=== PATIENT | female | born 1965 | race Caucasian/White ===

== ENCOUNTER → 2018-01-29 | Outpatient (CLI) | payer OTHER ==
--- NOTE | 2018-01-30 08:02 | MM ---
Reason for exam: additional evaluation requested from prior study. Last mammogram was performed 3 years ago. History: Patient is postmenopausal. Family history of breast cancer in maternal aunt at age 50. Benign US breast aspiration single RT of the right breast, January 18, 2015. Physical Findings: Nurse did not find any significant physical abnormalities on exam. MG Diagnostic Mammo w CAD HOLLIE Bilateral CC and MLO view(s) were taken. Prior study comparison: January 18, 2015, right breast MG diagnostic mammo RT wo CAD. January 01, 2015, bilateral MG diagnostic mammo w CAD HOLLIE. There are scattered fibroglandular densities. Previous mammotome biopsy in the right breast. Pacemaker over left chest. These results were verbally communicated with the patient and result sheet given to the patient on 01/29/18. ASSESSMENT: Benign, BI-RAD 2 RECOMMENDATION: Routine screening mammogram of both breasts in 1 year.
--- NOTE | 2018-01-30 08:04 | USB ---
Reason for exam: additional evaluation requested from prior study. History: Patient is postmenopausal. Family history of breast cancer in maternal aunt at age 50. Benign US breast aspiration single RT of the right breast, January 18, 2015. US Breast RT Right complete breast ultrasound includes all four quadrants, the retroareolar region and axilla. Finding demonstrates no cystic or solid lesion seen. These results were verbally communicated with the patient and result sheet given to the patient on 01/29/18. ASSESSMENT: Negative, BI-RAD 1 RECOMMENDATION: Routine screening mammogram of both breasts in 1 year.
== END | disposition home or self-care (01) ==
LOC: RADUSWWP 14:47
PROVIDERS: ATTEND Family Medicine
DX: N63.11 Unspecified lump in the right breast, upper outer quadrant (principal)
CPT/HCPCS: 77066

== ENCOUNTER → 2018-04-09 | Outpatient (CLI) | payer OTHER ==
--- NOTE | 2018-04-09 15:28 | CT ---
EXAMINATION TYPE: CT abdomen wo con DATE OF EXAM: 04/09/2018 HISTORY: Ventral hernia CT DLP: 414 mGycm. Automated Exposure Control for Dose Reduction was Utilized. TECHNIQUE: CT scan of the abdomen is performed with oral but without IV contrast. COMPARISON: NONE FINDINGS: Within the limitations of a non-contrast study, the following observations are made. LUNG BASES: There is partial visualization of right-sided pacemaker wire. LIVER/GB: Cholecystectomy clips are noted. PANCREAS: No significant abnormality is seen. SPLEEN: No significant abnormality is seen. ADRENALS: No significant abnormality is seen. KIDNEYS: No significant abnormality is seen. BOWEL: The oral contrast only reaches distal jejunal level in the left abdomen making evaluation of d istal bowel suboptimal. Occasional diverticula are seen scattered throughout visualized colon. No CT evidence for acute diverticulitis. Sutures from gastric bypass surgery are noted. No suspicious small or large bowel dilatation is seen. Patient has very little intra-abdominal fat making evaluation sub optimal. LYMPH NODES: No greater than 1cm abdominal lymph nodes are appreciated. OSSEOUS STRUCTURES: Mild to moderate disc space narrowing with vacuum disc phenomenon L3-L4 level is present. OTHER: Tiny fat-containing umbilical hernia is present. No additional ventral wall hernia noted. Scar at the left rectus muscle axial image 36 is present without hernia defect. IMPRESSION: Tiny fat-containing umbilical hernia. No additional suspicious ventral wall hernia identi fied.
== END | disposition home or self-care (01) ==
LOC: RADCTMAIN 13:44
PROVIDERS: ATTEND Family Medicine
DX: K43.9 Ventral hernia without obstruction or gangrene (principal)
CPT/HCPCS: 74150

== ENCOUNTER 2018-05-10 08:49 | Day surgery (SDC) | payer OTHER ==
[2018-05-08 10:13] VITALS: BMI 30.7
--- NOTE | 2018-05-10 07:33 | P.GSHP ---
History of Present Illness H&P Date: 05/10/18 CHIEF COMPLAINT: Colon screen HISTORY OF PRESENT ILLNESS: The patient is a 53-year-old female who presents for colon screen. Lower endoscopy was offered for further evaluation and management. PAST MEDICAL HISTORY: Please see list. PAST SURGICAL HISTORY: Please see list. MEDICATIONS: Please see list. ALLERGIES: Please see list. SOCIAL HISTORY: No illicit drug use FAMILY HISTORY: No reports of Crohn disease or ulcerative colitis. REVIEW OF ORGAN SYSTEMS: CONSTITUTIONAL: No reports of fevers or chills. PHYSICAL EXAM: VITAL SIGNS: Stable GENERAL: Well-developed pleasant in no acute distress. HEENT: No scleral icterus. Extraocular movements grossly intact. Moist buccal mucosa. NECK: Supple without lymphadenopathy. CHEST: Unlabored respirations. Equal bilateral excursions. CARDIOVASCULAR: Regular rate and rhythm. Distal 2+ pulses. ABDOMEN: Soft, nontender, nondistended. MUSCULOSKELETAL: No clubbing, cyanosis, or edema. ASSESSMENT: 1. Colon screen. PLAN: 1. Recommend proceeding with a lower endoscopy Past Medical History Past Medical History: GERD/Reflux, Syncope, Thyroid Disorder Additional Past Medical History / Comment(s): hypothyroid, goiter, Hashimotos, loren-tachy cardia, arthritis, hemorrhoids, History of Any Multi-Drug Resistant Organisms: None Reported Past Surgical History: Bariatric Surgery, Cholecystectomy, Orthopedic Surgery, Pacemaker, Tubal Ligation Additional Past Surgical History / Comment(s): bilat knee arthroscopy, alison-en- y 12-29-13, colonoscopies Past Anesthesia/Blood Transfusion Reactions: Motion Sickness Type of Cardiac Device: Permanent Pacemaker Device Placement Date:: 04-25-10 Smoking Status: Former smoker - Past Family History Mother Family Medical History: Cancer, Hyperlipidemia, Hypertension Additional Family Medical History / Comment(s): lung Father Family Medical History: Rheumatoid Arthritis (RA) Additional Family Medical History / Comment(s): sepsis Medications and Allergies Home Medications Medication Instructions Recorded Confirmed Type Ergocalciferol (Vitamin D2) 50,000 unit PO QMONTH 04/09/14 05/08/18 History [Drisdol] Multivitamins, Thera [Multivitamin] 1 each PO DAILY 04/09/14 05/08/18 History Atenolol [Tenormin] 50 mg PO DAILY 05/08/18 05/08/18 History Calcium Citrate/Vitamin D3 1 each PO DAILY 05/08/18 05/08/18 History [Calcitrate + Vit D Caplet] Levothyroxine Sodium 112 mcg PO DAILY 05/08/18 05/08/18 History QUEtiapine [SEROquel] 25 mg PO HS 05/08/18 05/08/18 History lamoTRIgine [LaMICtal] 100 mg PO DAILY 05/08/18 05/08/18 History Allergies Allergy/AdvReac Type Severity Reaction Status Date / Time amoxicillin [Amoxicillin] Allergy Rash/Hives Verified 05/08/18 10:05 hydrocodone bitartrate AdvReac Nausea & Verified 05/08/18 10:05 [From Vicodin] Vomiting
[~2018-05-10 08:49] MED LIST: LACTATED RINGERS 1,000 ML IV SCH
[2018-05-10 09:15] VITALS: RESP 16; TEMP 98
[2018-05-10] MEDS ORDERED: LIDOCAINE 1% 20 ML VIAL (10MG/ML) FOR IV START INTRADERMA ONE (09:22)
[2018-05-10] MEDS ORDERED: PROPOFOL 10 MG/ML 20 ML VIAL IV ONE (09:29)
[2018-05-10] MEDS ORDERED: LIDOCAINE 1% INJ 10MG/ML (20 ML MDV) ONE (09:29)
--- NOTE | 2018-05-10 10:08 | P.PCN ---
Date of Procedure: 05/10/18 Description of Procedure: PREOPERATIVE DIAGNOSIS: Personal history of colon polyps Colonoscopy screening. POSTOPERATIVE DIAGNOSIS: Personal history of colon polyps Colonoscopy screening. Diverticulosis, scattered with mild diverticulitis OPERATION: Colonoscopy to the ileocecal valve and appendiceal orifice. SURGEON: Jennifer Burks MD. ANESTHESIA: MAC. INDICATIONS: The patient is a 53-year-old female who presents for colonoscopy screening. Last colonoscopy was 5 years ago. Benefits and risks were described and informed consent was obtained. DESCRIPTION OF PROCEDURE: The patient had undergone Gatorade, MiraLAX and Dulcolax prep. She had been brought into the operating room and laid in the left lateral decubitus position. After adequate intravenous sedation, the rectum was examined with 2% lidocaine jelly. No external hemorrhoids were encountered. The rectal tone was within normal limits. No lesions were palpated in the rectal vault. An Olympus colonoscope was advanced until the ileocecal valve and appendiceal orifice were clearly viewed. The prep was excellent with clear visualization of the mucosal folds. The scope was removed with visualization of each mucosal fold. Scattered diverticulosis was encountered with evidence of focal colitis of the sigmoid colon albeit mild. No colonic polyps were found. No evidence of focal colitis was found. Retroflexion of the scope demonstrated no internal hemorrhoids without active bleeding or inflammation. The colon was desufflated. The patient had tolerated the procedure well. Withdrawal time was over 6 minutes. FINDINGS: No internal hemorrhoids No external prolapsed hemorrhoids. No arteriovenous malformations. No adenomatous polyps. Scattered diverticulosis was encountered with evidence of focal colitis of the sigmoid colon albeit mild. RECOMMENDATIONS: Lower endoscopy in 5 years, 2023 Plan - Discharge Summary Discharge Rx Participant: Yes New Discharge Prescriptions: No Action Ergocalciferol (Vitamin D2) [Drisdol] 50,000 unit PO QMONTH Multivitamins, Thera [Multivitamin] 1 each PO DAILY lamoTRIgine [LaMICtal] 100 mg PO DAILY QUEtiapine [SEROquel] 25 mg PO HS Atenolol [Tenormin] 50 mg PO DAILY Levothyroxine Sodium 112 mcg PO DAILY Calcium Citrate/Vitamin D3 [Calcitrate + Vit D Caplet] 1 each PO DAILY Discharge Medication List Ergocalciferol (Vitamin D2) [Drisdol] 50,000 unit PO QMONTH 04/09/14 [History] Multivitamins, Thera [Multivitamin] 1 each PO DAILY 04/09/14 [History] Atenolol [Tenormin] 50 mg PO DAILY 05/08/18 [History] Calcium Citrate/Vitamin D3 [Calcitrate + Vit D Caplet] 1 each PO DAILY 05/08/18 [History] Levothyroxine Sodium 112 mcg PO DAILY 05/08/18 [History] QUEtiapine [SEROquel] 25 mg PO HS 05/08/18 [History] lamoTRIgine [LaMICtal] 100 mg PO DAILY 05/08/18 [History] Follow up Appointment(s)/Referral(s): Jennifer Burks MD [STAFF PHYSICIAN] - As Needed Patient Instructions/Handouts: Diverticulosis Diet (GEN), Diverticulosis (DC) Activity/Diet/Wound Care/Special Instructions: Repeat colonoscopy 5 years, 2023 Discharge Disposition: HOME SELF-CARE
[2018-05-10 10:35] VITALS: BP 105/72; PULSE 61
== END 2018-05-10 10:44 | disposition home or self-care (01) ==
LOC: ORWHC2ENDO 08:49
PROVIDERS: ATTEND Surgery Plastic and Reconstructive Surgery
DX: Z12.11 Encounter for screening for malignant neoplasm of colon (principal); K57.92 Diverticulitis of intestine, part unspecified, without perforation or abscess without bleeding; K57.30 Diverticulosis of large intestine without perforation or abscess without bleeding; Z86.010 Personal history of colon polyps; K21.9 Gastro-esophageal reflux disease without esophagitis; E03.9 Hypothyroidism, unspecified; E06.3 Autoimmune thyroiditis; Z98.84 Bariatric surgery status; F39 Unspecified mood [affective] disorder; Z87.891 Personal history of nicotine dependence; Z79.890 Hormone replacement therapy; Z79.899 Other long term (current) drug therapy; Z88.5 Allergy status to narcotic agent; Z88.0 Allergy status to penicillin
CPT/HCPCS: J2001; J2704; G0105

== ENCOUNTER → 2018-05-16 | Outpatient (CLI) | payer OTHER ==
[2018-05-16 12:17] LABS: HCT 37.6 % (34.0-46.0); HGB 12.1 gm/dL (11.4-16.0); MCH 29.4 pg (25.0-35.0); MCHC 32.2 g/dL (31.0-37.0); MCV 91.5 fL (80.0-100.0); Mean Platelet Volume 5.7; Platelet Count 336 k/uL (150-450); RBC 4.11 m/uL (3.80-5.40); RDW 13.5 % (11.5-15.5); WBC 4.5 k/uL (3.8-10.6)
[2018-05-16 12:24] LABS: INR 0.9 (<1.2); Partial Thromboplastin Time 23.7 sec (22.0-30.0)
[2018-05-16 18:19] LABS: Albumin 4.2 g/dL (3.80-4.90); Albumin/Globulin Ratio 2.1 (1.60-3.17); Anion Gap 8.1 mmol/L (4.00-12.00); Calcium 8.8 mg/dL (8.7-10.3); Carbon Dioxide 25.9 mmol/L (21.6-31.8); LDL Cholesterol,Calculated 124.6 mg/dL (0.0-131.0); Magnesium 2.1 mg/dL (1.5-2.4); Phosphorus 4.1 mg/dL (2.4-5.1); Potassium 4.5 mmol/L (3.5-5.5); Total Bilirubin 0.5 mg/dL (0.3-1.2); Total Protein 6.2 g/dL (6.2-8.2); VLDL Calculation 17.4 mg/dL (5.00-40.00)
[2018-05-16 18:27] LABS: Vitamin D 25 Hydroxy 22.4 ng/mL (30.0-100.0)
[2018-05-16 18:44] LABS: Folate, Serum 22.8 ng/mL
[2018-05-16 21:00] LABS: Hemoglobin A1C 5.7 % (4.0-6.0)
[2018-05-17 13:45] LABS: Zinc, Serum 57 ug/dL (60-130)
== END | disposition home or self-care (01) ==
LOC: LABWHC1 11:27
PROVIDERS: ATTEND Surgery Plastic and Reconstructive Surgery
DX: E21.1 Secondary hyperparathyroidism, not elsewhere classified (principal); E89.1 Postprocedural hypoinsulinemia; D50.8 Other iron deficiency anemias; K90.89 Other intestinal malabsorption; E44.0 Moderate protein-calorie malnutrition; E55.9 Vitamin D deficiency, unspecified; K74.1 Hepatic sclerosis; N19 Unspecified kidney failure
CPT/HCPCS: 36415; 80053; 80061; 82306; 82525; 82607; 82746; 83036; 83735; 83970; 84100; 84134; 84255; 84425; 84443; 84590; 84630; 85027; 85610; 85730

== ENCOUNTER → 2018-12-24 | Outpatient (CLI) | payer OTHER ==
[2018-12-24 15:00] LABS: Basophils % (A) 1 %; Eosinophils # (A) 0.1 k/uL (0-0.7); Eosinophils % (A) 3 %; HCT 35.3 % (34.0-46.0); HGB 12.3 gm/dL (11.4-16.0); Lymphocytes # (A) 1.5 k/uL (1.0-4.8); Lymphocytes % (A) 28 %; MCH 29.9 pg (25.0-35.0); MCHC 34.8 g/dL (31.0-37.0); MCV 85.9 fL (80.0-100.0); Mean Platelet Volume 5.4; Monocytes # (A) 0.3 k/uL (0-1.0); Monocytes % (A) 6 %; Neutrophils # (A) 3.2 k/uL (1.3-7.7); Neutrophils % (A) 61 %; Platelet Count 329 k/uL (150-450); RBC 4.11 m/uL (3.80-5.40); RDW 13.2 % (11.5-15.5); WBC 5.3 k/uL (3.8-10.6)
== END | disposition home or self-care (01) ==
LOC: LABPAT 13:37
PROVIDERS: ATTEND Surgery Plastic and Reconstructive Surgery
DX: Z01.812 Encounter for preprocedural laboratory examination (principal)
CPT/HCPCS: 36415; 85025

== ENCOUNTER 2018-12-27 11:41 | Day surgery (SDC) | payer OTHER ==
[2018-12-05 13:47] VITALS: BMI 27.8
--- NOTE | 2018-12-26 19:46 | P.GSHP ---
History of Present Illness H&P Date: 12/27/18 CHIEF COMPLAINT: Incisional hernia. HISTORY OF PRESENT ILLNESS: The patient is a 53-year-old female who presents with a history of swelling along the left upper abdomen. Findings were consistent with possible incisional hernia. Now she presents for further evaluation and management. PAST MEDICAL HISTORY: Please see list. PAST SURGICAL HISTORY: Please see list. MEDICATIONS: Please see list. ALLERGIES: Please see list. SOCIAL HISTORY: No illicit drug use FAMILY HISTORY: No reports of Crohn disease or ulcerative colitis. REVIEW OF ORGAN SYSTEMS: CONSTITUTIONAL: No reports of fevers or chills. GI: Denies any blood in stools or constipation. PHYSICAL EXAM: VITAL SIGNS: Stable GENERAL: Well-developed pleasant female in no acute distress. HEENT: No scleral icterus. Extraocular movements grossly intact. Moist buccal mucosa. NECK: Supple without lymphadenopathy. CHEST: Unlabored respirations. Equal bilateral excursions. CARDIOVASCULAR: Regular rate and rhythm. Distal 2+ pulses. ABDOMEN: Soft, nondistended. Tender along the left upper abdomen. Protuberant. MUSCULOSKELETAL: No clubbing, cyanosis, or edema. ASSESSMENT: 1. Incisional ventral hernia. 2. Morbid obesity, BMI 45.2 PLAN: 1. Recommend proceeding with robotic ventral hernia repair with mesh. 2. Benefits and risks of surgical intervention was discussed including possibility of open technique. 3. DVT prophylaxis. 4. Antibiotic prophylaxis. Past Medical History Past Medical History: GERD/Reflux, Osteoarthritis (OA), Syncope, Thyroid Disorder Additional Past Medical History / Comment(s): goiter, Hashimotos, "sick sinus syndrome", Pacemaker., hx gastritis, History of Any Multi-Drug Resistant Organisms: None Reported Past Surgical History: Bariatric Surgery, Cholecystectomy, Orthopedic Surgery, Pacemaker, Tubal Ligation Additional Past Surgical History / Comment(s): bilat knee arthroscopy, alison-en-y 12-29-13, colonoscopies, Past Anesthesia/Blood Transfusion Reactions: No Reported Reaction Type of Cardiac Device: Permanent Pacemaker Device Placement Date:: 06/25/2015-[employer] Past Psychological History: Bipolar, Depression Smoking Status: Former smoker Past Alcohol Use History: None Reported Additional Past Alcohol Use History / Comment(s): quit smoking in 1994, smoked for 15 yrs, 1 PPD Past Drug Use History: None Reported - Past Family History Mother Family Medical History: Cancer, Hyperlipidemia Additional Family Medical History / Comment(s): lung Father Family Medical History: Rheumatoid Arthritis (RA) Additional Family Medical History / Comment(s): sepsis Medications and Allergies Home Medications Medication Instructions Recorded Confirmed Type Ergocalciferol (Vitamin D2) 50,000 unit PO QMONTH 04/09/14 12/24/18 History [Drisdol] Multivitamins, Thera [Multivitamin] 1 each PO DAILY 04/09/14 12/24/18 History Atenolol [Tenormin] 50 mg PO DAILY 05/08/18 12/24/18 History Calcium Citrate/Vitamin D3 1 each PO TID 05/08/18 12/24/18 History [Calcitrate + Vit D Caplet] Levothyroxine Sodium 112 mcg PO DAILY 05/08/18 12/24/18 History QUEtiapine [SEROquel] 25 mg PO HS 05/08/18 12/24/18 History lamoTRIgine [LaMICtal] 100 mg PO DAILY 05/08/18 12/24/18 History Venlafaxine HCl [Effexor XR] 75 mg PO DAILY 12/05/18 12/24/18 History Allergies Allergy/AdvReac Type Severity Reaction Status Date / Time amoxicillin [Amoxicillin] Allergy Rash/Hives Verified 12/24/18 11:02 hydrocodone bitartrate AdvReac Nausea & Verified 12/24/18 11:02 [From Vicodin] Vomiting
[~2018-12-27 11:41] MED LIST changes: +ACETAMINOPHEN TAB 500 MG TAB PO STA; +DEXAMETHASONE SOD PHOSPHATE 10 MG/ML 1 ML VIAL IV ONE; +HEPARIN SODIUM,PORCINE 5,000 UNIT/ML 1 ML VIAL SQ ONE; +MIDAZOLAM 2 MG/2 ML VIAL IV PRN; +ONDANSETRON 4 MG/2 ML VIAL IVP ONE; +SCOPOLAMINE 1.5MG/72HR PATCH TRANSDERM ONE; +fentaNYL (PF) 50 MCG/ML 2 ML AMP IV PRN
[2018-12-27 12:05] VITALS: TEMP 97.5
[2018-12-27] MEDS ORDERED: LIDOCAINE 1% 20 ML VIAL (10MG/ML) FOR IV START INTRADERMA ONE (12:10)
[2018-12-27] MEDS ORDERED: MIDAZOLAM PF (FBP) 2 MG/2 ML VIAL IVP ONE (13:02)
--- NOTE | 2018-12-27 13:17 | P.ANPRN ---
Procedure Note - Anesthesia - Nerve Block Performed Bilateral Transversus Abdominis Single Time Out Performed: Yes Date of Procedure: 12/27/18 Procedure Start Time: 13:01 Procedure Stop Time: 13:06 Location of Patient Procedure: PreOp Indication: Acute Post-Operative Pain, Analgesia, Requested by Surgeon Sedation Type: Sedate with meaningful contact maintained Preparation: Sterile Prep Position: Supine Catheter: None Needle Types: Pajunk Needle Gauge: 21 Ultrasound used to visualize needle placement: Yes Ultrasound used to observe medication spread: Yes Injectate: Other (see comment) (0.25% ropivacaine 30cc each side) Blood Aspirated: No Pain Paresthesia on Injection Noted: No Resistance on Injection: Normal Image Stored and Saved: Yes Events: Uneventful and Well Tolerated
[2018-12-27] MEDS ORDERED: PROPOFOL 10 MG/ML 20 ML VIAL IV ONE (14:00)
[2018-12-27] MEDS ORDERED: MIDAZOLAM 2 MG/2 ML VIAL ONE (14:00)
[2018-12-27] MEDS ORDERED: LIDOCAINE 1% INJ 10MG/ML (20 ML MDV) ONE (14:00)
[2018-12-27] MEDS ORDERED: ROPIVACAINE 5 MG/ML 30 ML VIAL ONE (14:00)
[2018-12-27] MEDS ORDERED: fentaNYL (PF) 50 MCG/ML 2 ML AMP ONE (14:00)
[2018-12-27] MEDS ORDERED: GLYCOPYRROLATE 0.2 MG/ML 2 ML VIAL ONE (14:00)
[2018-12-27] MEDS ORDERED: KETOROLAC 30 MG/ML 1 ML VIAL ONE (14:00)
[2018-12-27] MEDS ORDERED: NEOSTIGMINE 1 MG/ML 10 ML VIAL ONE (14:00)
[2018-12-27] MEDS ORDERED: ePHEDrine SULFATE/0.9% NACL/PF 50 MG/5 ML SYRINGE IV ONE (14:00)
[2018-12-27] MEDS ORDERED: ROCURONIUM BROMIDE 10 MG/ML 10 ML VIAL IV ONE (14:00)
[2018-12-27] MEDS ORDERED: SUCCINYLCHOLINE CHLORIDE 100 MG/5 ML SYR IV ONE (14:00)
[2018-12-27] MEDS ORDERED: LIDOCAINE 1%-EPI 1:100,000 20 ML VIAL SQ ONE (14:34)
[2018-12-27] MEDS ORDERED: LACTATED RINGERS 1,000 ML IV ONE (15:03)
--- NOTE | 2018-12-27 15:32 | P.OP ---
Date of Procedure: 12/27/18 Description of Procedure: SURGEON: JENNIFER BURKS MD PREOPERATIVE DIAGNOSES: 1. History of multiple abdominal procedures 2. Left upper quadrant abdominal pain 3. Left upper abdominal swelling/incisional hernia 4. Bipolar disorder 5. Depressive disorder 6. Hypothyroidism 7. History of pacemaker for sick sinus syndrome 8. Gastroesophageal reflux disease 9. Status post gastric bypass POSTOPERATIVE DIAGNOSES: 1. History of multiple abdominal procedures 2. Left upper quadrant abdominal pain 3. Left upper peritoneal adhesions, greater omentum to anterior abdominal wall 4. Bipolar disorder 5. Depressive disorder 6. Hypothyroidism 7. History of pacemaker for sick sinus syndrome 8. Gastroesophageal reflux disease 9. Status post gastric bypass OPERATION: 1. Robotic-assisted da Carson Xi laparoscopic with lysis of adhesions over 45 minutes. ESTIMATED BLOOD LOSS: 5 mL. SPECIMENS REMOVED: None. COMPLICATIONS: None. OPERATIVE FINDINGS: 1. No ventral hernias identified. 2. Adhesions along the left upper quarant 3. Complete scarring of Johnson defect and jejunojejunostomy mesenteric defect 4. No small bowel obstructions INDICATIONS: The patient is a 53-year-old female who presents with left upper quadrant abdominal pain and possible left upper quadrant incisional hernia. Surgical intervention with diagnostic laparoscopy, lysis of adhesions, incisional hernia repair were described. Informed consent was obtained. Robotic assisted laparoscopic approach was described. Benefits and risks of the procedure including but not limited to bleeding, infection, injury to the biliary tree was described. Informed consent was obtained. DESCRIPTION OF PROCEDURE: Patient was brought to the operating room, placed in supine position. After general induction, the abdomen had been prepped and draped in standard sterile fashion. The robotic da Carson XI system was primed. After a timeout protocol was performed, the patient had been prepped and draped in standard sterile fashion. The robot was docked along the right lateral abdomen. Please note prior to docking of the robot; however, a 5 mm 0 degrees laparoscopic trocar entry was performed along the left upper quadrant with insufflation to 15 mmHg pressure she tolerated well. Diagnostic laparoscopy demonstrated adhesions on the left upper quadrant Next, three 8 mm robotic ports were placed along the right lateral abdominal wall. The camera 8-mm port was maintained along mid-lateral abdomen. Please note that the ports were placed at least 10 to 15 cm away from the target anatomy. Instruments including graspers and vessel sealer were interchanged by the marketing support assistant. I had sat at the console. Omental adhesions along the left upper abdominal wall were addressed using scissors with cautery. No evidence of incisional hernia was identified. The rest of the abdomen was unremarkable for small bowel pathology. The small bowel from the alison limb to distal ileum was inspected. No internal hernias were identified. Complete scarring of Johnson defect and jejunojejunostomy mesenter ic defect was confirmed. The terminal ileum and cecum was unremarkable. Lysis of adhesions over 30 minutes performed. No evidence of small bowel obstruction was found. The robot was undocked. All pneumoperitoneum instruments were evacuated from the abdominal cavity. The incisions were reapproximated using 4-0 Monocryl in an interrupted subcuticular fashion. Please note along the trocar sites, local anesthetic was placed as a field block prior to insertion of all instruments. Exofin was applied to the skin. At the end of the procedure needle, sponge, and instrument count had been verif ied correct by the surgical asst. The patient was transferred to postanesthesia care unit in stable condition. Plan - Discharge Summary Discharge Rx Participant: Yes New Discharge Prescriptions: New Acetaminophen Tab [Tylenol Tab] 500 mg PO Q6H PRN #30 tablet PRN Reason: Pain No Action Ergocalciferol (Vitamin D2) [Drisdol] 50,000 unit PO QMONTH Multivitamins, Thera [Multivitamin] 1 each PO DAILY lamoTRIgine [LaMICtal] 100 mg PO DAILY QUEtiapine [SEROquel] 25 mg PO HS Atenolol [Tenormin] 50 mg PO DAILY Levothyroxine Sodium 112 mcg PO DAILY Calcium Citrate/Vitamin D3 [Calcitrate + Vit D Caplet] 1 each PO TID Venlafaxine HCl [Effexor XR] 75 mg PO DAILY Discharge Medication List Ergocalciferol (Vitamin D2) [Drisdol] 50,000 unit PO QMONTH 04/09/14 [History] Multivitamins, Thera [Multivitamin] 1 each PO DAILY 04/09/14 [History] Atenolol [Tenormin] 50 mg PO DAILY 05/08/18 [History] Calcium Citrate/Vitamin D3 [Calcitrate + Vit D Caplet] 1 each PO TID 05/08/18 [History] Levothyroxine Sodium 112 mcg PO DAILY 05/08/18 [History] QUEtiapine [SEROquel] 25 mg PO HS 05/08/18 [History] lamoTRIgine [LaMICtal] 100 mg PO DAILY 05/08/18 [History] Venlafaxine HCl [Effexor XR] 75 mg PO DAILY 12/05/18 [History] Acetaminophen Tab [Tylenol Tab] 500 mg PO Q6H PRN #30 tablet 12/27/18 [Rx] Follow up Appointment(s)/Referral(s): Jennifer Burks MD [STAFF PHYSICIAN] - 12/31/18 Patient Instructions/Handouts: Lysis of Abdominal Adhesions (DC) Activity/Diet/Wound Care/Special Instructions: No lifting for 10 pounds for 10 days until 01/06/2019. No bath tub soaks for 10 days until 01/06/2019. May shower. Use ice for incisions. Discharge Disposition: HOME SELF-CARE
[2018-12-27 16:01] VITALS: RESP 18
[2018-12-27 16:19] VITALS: BP 110/60; PULSE 60
== END 2018-12-27 16:42 | disposition home or self-care (01) ==
LOC: OR 11:41
PROVIDERS: ATTEND Surgery Plastic and Reconstructive Surgery
DX: K66.0 Peritoneal adhesions (postprocedural) (postinfection) (principal); F31.9 Bipolar disorder, unspecified; E03.9 Hypothyroidism, unspecified; I49.5 Sick sinus syndrome; K21.9 Gastro-esophageal reflux disease without esophagitis; Z95.0 Presence of cardiac pacemaker; Z98.84 Bariatric surgery status; Z90.49 Acquired absence of other specified parts of digestive tract; Z98.51 Tubal ligation status; Z87.891 Personal history of nicotine dependence; Z80.1 Family history of malignant neoplasm of trachea, bronchus and lung; Z82.61 Family history of arthritis; Z79.890 Hormone replacement therapy; Z88.1 Allergy status to other antibiotic agents; Z79.899 Other long term (current) drug therapy; Z88.5 Allergy status to narcotic agent
CPT/HCPCS: 64488; 49329; J2250 ×2; J1644; J1100; J2710; J0690; J2405; J2001; J3010; J1885; J2795; J0330; J2704

== ENCOUNTER → 2019-03-12 | Outpatient (CLI) | payer OTHER ==
--- NOTE | 2019-03-12 23:05 | CT ---
EXAMINATION TYPE: CT abdomen pelvis w con DATE OF EXAM: 03/12/2019 HISTORY: LLQ pain CT DLP: 865.5mGycm Automated Exposure Control for Dose Reduction was Utilized. CONTRAST: CT scan of the abdomen and pelvis is performed with IV Contrast, patient injected with 100 mL of Isov ue 300. COMPARISON: CT abdomen April 09, 2018 FINDINGS: LUNG BASES: Partial visualization of right-sided pacemaker wire. LIVER/GB: Cholecystectomy clips are redemonstrated. PANCREAS: No significant abnormality is seen. SPLEEN: Stable tiny posterior calcification to the spleen axial image 21 presumed benign. ADRENALS: No significant abnormality is seen. KIDNEYS: No significant abnormality is seen. BOWEL: Oral contrast reaches level of the left colon. No suspicious small or large bowel dilatation. Surgical changes from gastric bypass redemonstrated epigastric region. No suspicious small or large b owel dilatation. Normal-appearing appendix and cecum in the right upper pelvis medially. Moderate pro minence of fecal material in the left colon is identified at level of left lower quadrant. Scattered diverticula most prominent in the sigmoid colon. No CT evidence for acute diverticulitis. UTERUS/ADNEXA: Uterus anteverted in shape projecting to the left of midline. LYMPH NODES: No greater than 1cm abdominal or pelvic lymph nodes are appreciated. OSSEOUS STRUCTURES: Mild to moderate Disc space narrowing and disc desiccation L3-L4 and L5-S1 levels . Some facet arthropathy lower lumbar spine. OTHER: Stable tiny fat-containing umbilical hernia. Small scar over left rectus muscle axial image 30 redemonstrated. IMPRESSION: Suspected moderate distal colonic fecal stasis centered mid to distal left colon extendin g into proximal sigmoid colon may be accounting for patient's symptoms. Overall nonobstructive bowel gas pattern is felt present.
== END | disposition home or self-care (01) ==
LOC: RADCTMAIN 15:42
PROVIDERS: ATTEND Surgery Plastic and Reconstructive Surgery
DX: K57.92 Diverticulitis of intestine, part unspecified, without perforation or abscess without bleeding (principal); Z88.0 Allergy status to penicillin
CPT/HCPCS: 74177; Q9967

== ENCOUNTER → 2020-01-29 | Outpatient (CLI) | payer OTHER ==
--- NOTE | 2020-01-30 14:48 | MM ---
Reason for exam: screening (asymptomatic). Last mammogram was performed 2 years ago. History: Patient is postmenopausal. Family history of breast cancer in maternal aunt at age 50. Benign US breast aspiration single RT of the right breast, January 18, 2015. Physical Findings: A clinical breast exam by your physician is recommended on an annual basis and results should be correlated with mammographic findings. MG Screening Mammo w CAD Bilateral CC and MLO view(s) were taken. Prior study comparison: January 29, 2018, bilateral MG diagnostic mammo w CAD HOLLIE. January 18, 2015, right breast MG diagnostic mammo RT wo CAD. There are scattered fibroglandular densities. Previous mammotome biopsy in the right breast. Pacemaker on left. No significant changes when compared with prior studies. ASSESSMENT: Benign, BI-RAD 2 RECOMMENDATION: Routine screening mammogram of both breasts in 1 year.
== END | disposition home or self-care (01) ==
LOC: RADMAMWWP 08:15
PROVIDERS: ATTEND Family Medicine
DX: Z12.31 Encounter for screening mammogram for malignant neoplasm of breast (principal)
CPT/HCPCS: 77067

== ENCOUNTER → 2020-05-13 | Outpatient (CLI) | payer OTHER ==
[2020-05-13 16:34] LABS: INR 1.1 (0.90-1.11); Partial Thromboplastin Time 28.2 sec (23.5-31.0); Prothrombin Time 11.9 sec (9.9-11.9)
[2020-05-13 17:02] LABS: % Iron Saturation 13.23 (12.00-45.00); African American GFR (CKD) 82.3 (60.0-200.0); Albumin 4.7 g/dL (3.80-4.90); Albumin/Globulin Ratio 2.76 (1.60-3.17); Anion Gap 8.7 mmol/L (4.00-12.00); BUN/Creat Ratio 15.56 Ratio (12.00-20.00); Calcium 9.9 mg/dL (8.7-10.3); Carbon Dioxide 27.3 mmol/L (21.6-31.8); Chol/HDL Ratio 2.71; Globulin 1.7 g/dL (1.6-3.3); LDL Cholesterol,Calculated 140.6 mg/dL (0.0-131.0); Magnesium 2.2 mg/dL (1.5-2.4); Phosphorus 3.9 mg/dL (2.4-5.1); Potassium 4.5 mmol/L (3.5-5.5); Total Bilirubin 0.7 mg/dL (0.2-1.2); Total Protein 6.4 g/dL (6.2-8.2); VLDL Calculation 11.4 mg/dL (5.00-40.00)
[2020-05-13 17:04] LABS: Ferritin 7.2 ng/mL (10.0-291.0); Folate, Serum 15.6 ng/mL
[2020-05-13 17:08] LABS: HCT 37.9 % (37.2-46.3); HGB 11.7 g/dL (12.0-15.0); MCH 27.6 pg (27.0-32.0); MCHC 30.9 g/dL (32.0-37.0); MCV 89.4 fL (80.0-97.0); Mean Platelet Volume 9.2 fL (9.5-12.2); Platelet Count 345 X 10*3/uL (140-440); RBC 4.24 X 10*6/uL (4.10-5.20); RDW 13.6 % (11.5-14.5); WBC 3.68 X 10*3/uL (4.50-10.00)
[2020-05-13 17:15] LABS: Hemoglobin A1C 5.5 % (4.0-6.0)
[2020-05-14 12:07] LABS: Zinc, Serum 63 ug/dL (60-130)
[2020-05-14 14:05] LABS: Vitamin A 51 ug/dL (38-106)
== END | disposition home or self-care (01) ==
LOC: LABWHC1 09:36
PROVIDERS: ATTEND Surgery Plastic and Reconstructive Surgery
DX: E55.9 Vitamin D deficiency, unspecified (principal); E66.01 Morbid (severe) obesity due to excess calories; E89.1 Postprocedural hypoinsulinemia; D50.9 Iron deficiency anemia, unspecified; K90.89 Other intestinal malabsorption; K74.1 Hepatic sclerosis; K50.90 Crohn's disease, unspecified, without complications; N19 Unspecified kidney failure
CPT/HCPCS: 36415; 80053; 80061; 82306; 82525; 82607; 82728; 82746; 83036; 83540; 83550; 83735; 83970; 84100; 84134; 84255; 84425; 84443; 84590; 84630; 85027; 85610; 85730

== ENCOUNTER → 2020-05-19 | Outpatient (CLI) | payer OTHER ==
[2020-05-19 15:14] VITALS: BP 154/92; PULSE 57; RESP 16; TEMP 99; BMI 32.2
--- NOTE | 2020-05-19 16:22 | P.PN ---
Subjective Progress Note Date: 05/19/20 DATE OF SERVICE: 05/19/2020 CHIEF COMPLAINT: Status post dell-en-Y gastric bypass. HISTORY OF PRESENT ILLNESS: Malgorzata Saucedo is a 55-year-old female who is status post a Dell-en-Y gastric bypass from December 29, 2013. She is 7 years out. She comes in with new problem of moderate weight gain. She has been lost to follow- up for 5 years from the bariatric center. She has gained moderate weight with change in her thyroid dose medication. She is on medications that puts her at risk for weight gain including lamictal. She comes in with left upper quadrant abdominal pain. She initially presented to the program weighing 257 pounds. Today she comes in weighing 179 pounds from 150 pounds, 6 years ago. She has gained 28 pounds in 6 years. She has achieved 64% lifetime excess weight loss. Her lifetime weight loss is 78 pounds. Her body mass index has been reduced from 47 to 32.2. PAST MEDICAL HISTORY: 1. Bradyarrhythmia. 2. Morbid obesity due to excess calories 3. Depression. 4. Hypothyroidism. 5. Osteoarthritis. 6. Vitamin D deficiency. 7. Prior history of adenoma of the colon. 8. Gastroesophageal reflux disease. 9. Hemorrhoids. 10. Frequent diarrhea. PAST SURGICAL HISTORY: 1. Tubal ligation. 2. Pacemaker placement. 3. Cholecystectomy. 4. Colonoscopy. 5. Right knee arthroscopy. 6. EGD. 7. Cardiac stress test. 8. Dell-en-Y gastric bypass. 9. Status post lysis of adhesions. MEDICATIONS: Home Medications Medication Instructions Recorded Confirmed Multivitamins, Thera [Multivitamin] 1 each PO DAILY 04/09/14 05/19/20 Calcium Citrate/Vitamin D3 1 each PO BID 05/08/18 05/19/20 [Calcitrate + Vit D Caplet] Levothyroxine Sodium 100 mcg PO DAILY 05/08/18 05/19/20 lamoTRIgine [LaMICtal] 100 mg PO DAILY 05/08/18 05/19/20 Buprenorphine HCl [Belbuca] 150 mcg BUCCAL DAILY 05/19/20 05/19/20 Cyanocobalamin (Vitamin B-12) 1,000 mcg PO QMONTHLY 05/19/20 05/19/20 [Vitamin B-12] Ergocalciferol (Vitamin D2) 50,000 units PO QMONTHLY 05/19/20 05/19/20 [Drisdol (50,000 Iu)] Nystatin 100,000 Unit/gm Oint 1 applic TOPICAL DIRECTED PRN 05/19/20 05/19/20 [Mycostatin Oint] Previous Rx's Medication Instructions Recorded Levothyroxine Sodium [Levoxyl] 125 mcg PO DAILY #30 tab 05/19/20 ALLERGIES: Allergies Allergy/AdvReac Type Severity Reaction Status Date / Time amoxicillin [Amoxicillin] Allergy Rash/Hives Verified 05/19/20 15:21 hydrocodone bitartrate AdvReac Nausea & Verified 05/19/20 15:21 [From Vicodin] Vomiting SOCIAL HISTORY: Remote tobacco use. FAMILY HISTORY: Pertinent for morbid obesity. REVIEW OF SYSTEMS: CONSTITUTIONAL: She initially presented to the program weighing 257 pounds. Today she comes in weighing 179 pounds from 150 pounds, 6 years ago. She has gained 28 pounds in 6 years. She has achieved 64% lifetime excess weight loss. Her lifetime weight loss is 78 pounds. Her body mass index has been reduced from 47 to 32.2. PSYCH: On antidepressants medication including Lexapro and Lamictal. GASTROINTESTINAL: No reports dysphagia and diarrhea or constipation. HEENT: Wears glasses. Denies any troubles with hearing. ENDOCRINE: Has hypothyroidism. No reports of diabetes. CARDIOVASCULAR: History of bradyarrhythmia. No reports of hypertension. RESPIRATORY: Lower risk for sleep apnea. No reports of pneumonia. MUSCULOSKELETAL: Osteoarthritis moderately improved with weight loss. NEURO: No reports of seizure disorder or headaches. HEMATOLOGIC: No reports of DVTs or pulmonary embolism. SKIN: Has panniculitis. No skin cancer. PHYSICAL EXAM: VITAL SIGNS: Height 5 foot 2.5 inches, 179 pounds. BMI 32.3. Vital Signs Temp 99 F 05/19/20 15:10 Pulse 57 L 05/19/20 15:10 Resp 16 05/19/20 15:10 BP 154/92 05/19/20 15:10 Pulse Ox GENERAL: Well-developed, pleasant female in no acute distress. ABDOMEN: Soft, nondistended. No incisional hernias. HEENT: No sclerae icterus. Extraocular movements are grossly intact. Moist buccal mucosa. NECK: Supple without lymphadenopathy. CHEST: Nonlabored respirations with equal bilateral excursions. CARDIOVASCULAR: Regular rate and rhythm. MUSCULOSKELETAL: No clubbing, cyanosis or edema. NEURO: No focal or lateralizing signs. Cranial nerves II to XII intact. PSYCH: Appropriate affect. Alert and oriented to person, place and time. SKIN: Well perfused, good skin turgor. LABS: Bariatric labs are reviewed. WBC is low, Hemoglobin is low, Cholesterol is elevated, PTH is elevated. TSH 2.02 ASSESSMENT: 1. History of morbid obesity secondary to excess caloric intake. 2. Body mass index reduced from 47 down to 32.3 3. Status post Dell-en-Y gastric bypass. 4. History of bipolar disorder. 5. Hypothyroidism. 6. Leukopenia 7. Hypercholesterolemia 8. Dietary surveillance and management PLAN: 1. Her WBC is low which is new. Recommend repeat CBC. 2. Recommend increase her levothyroxine for goal TSH less than 1.0 3. Dietary surveillance and management with 2 week high protein low carb diet advised. 4. Follow-up in 1 month Objective - Vital Signs Vital signs: Vital Signs Temp 99 F 05/19/20 15:10 Pulse 57 L 05/19/20 15:10 Resp 16 05/19/20 15:10 BP 154/92 05/19/20 15:10 Pulse Ox Intake & Output 05/18/20 05/19/20 05/19/20 18:59 06:59 18:59 Weight 81.193 kg
== END | disposition home or self-care (01) ==
LOC: BARWHC3 14:24
PROVIDERS: ATTEND Surgery Plastic and Reconstructive Surgery
DX: E66.01 Morbid (severe) obesity due to excess calories (principal); E03.9 Hypothyroidism, unspecified; E78.00 Pure hypercholesterolemia, unspecified; D72.819 Decreased white blood cell count, unspecified; Z86.59 Personal history of other mental and behavioral disorders; Z68.32 Body mass index [BMI] 32.0-32.9, adult; Z98.84 Bariatric surgery status; Z71.3 Dietary counseling and surveillance; Z88.0 Allergy status to penicillin; Z79.899 Other long term (current) drug therapy; Z79.890 Hormone replacement therapy
CPT/HCPCS: 99211

== ENCOUNTER → 2020-06-14 | Outpatient (CLI) | payer OTHER ==
[2020-06-14 14:24] LABS: Basophils % (A) 1 %; Eosinophils # (A) 0.2 k/uL (0-0.7); Eosinophils % (A) 4 %; HCT 36.5 % (34.0-46.0); HGB 11.5 gm/dL (11.4-16.0); Lymphocytes # (A) 1.3 k/uL (1.0-4.8); Lymphocytes % (A) 33 %; MCH 26.9 pg (25.0-35.0); MCHC 31.6 g/dL (31.0-37.0); Mean Platelet Volume 6.8; Monocytes # (A) 0.3 k/uL (0-1.0); Monocytes % (A) 8 %; Neutrophils % (A) 51 %; Platelet Count 340 k/uL (150-450); RDW 13.7 % (11.5-15.5); WBC 3.9 k/uL (3.8-10.6)
== END | disposition home or self-care (01) ==
LOC: LABPAT 12:46
PROVIDERS: ATTEND Surgery Plastic and Reconstructive Surgery
DX: Z01.818 Encounter for other preprocedural examination (principal); E44.0 Moderate protein-calorie malnutrition
CPT/HCPCS: 84443; 85025

== ENCOUNTER → 2020-06-16 | Outpatient (CLI) | payer OTHER ==
[2020-06-16 15:27] VITALS: BP 145/94; PULSE 84; RESP 18; TEMP 98.1; BMI 31.3
--- NOTE | 2020-06-16 15:52 | P.PN ---
Subjective Progress Note Date: 06/16/20 DATE OF SERVICE: 06/16/2020 CHIEF COMPLAINT: Status post dell-en-Y gastric bypass. HISTORY OF PRESENT ILLNESS: Malgorzata Saucedo is a 55-year-old female who is status post a Dell-en-Y gastric bypass from December 29, 2013. She is 7 years out. She comes in with weight loss after adjustment of her thyroid medications. She also comes in with complaints of left quadrant abdominal pain. No reports of blood in stools. Her highest weight was 257 pounds for height of 5 feet 2 inch. [place] body weight is 135 pounds. Her initial BMI was 47.1. Today she comes in weighing 174 pounds from 179 pounds, 1 month ago. She has lost 5 pounds in 1 month. She has achieved 68% lifetime excess weight loss. Her lifetime weight loss is 83 pounds. Her body mass index is reduced from 47.1 to 31.3 PHYSICAL EXAM: VITAL SIGNS: Height 5 foot 2 inches, 174 pounds. BMI 31.8 Vital Signs Temp 98.1 F 06/16/20 15:21 Pulse 84 06/16/20 15:21 Resp 18 06/16/20 15:21 BP 145/94 06/16/20 15:21 Pulse Ox GENERAL: Well-developed, pleasant female in no acute distress. ABDOMEN: Soft, nondistended. No incisional hernias. HEENT: No sclerae icterus. Extraocular movements are grossly intact. Moist buccal mucosa. NECK: Supple without lymphadenopathy. CHEST: Nonlabored respirations with equal bilateral excursions. CARDIOVASCULAR: Regular rate and rhythm. MUSCULOSKELETAL: No clubbing, cyanosis or edema. NEURO: No focal or lateralizing signs. Cranial nerves II to XII intact. PSYCH: Appropriate affect. Alert and oriented to person, place and time. SKIN: Well perfused, good skin turgor. LABS: Reviewed. TSH less than 1.0. PTH is elevated. ASSESSMENT: 1. History of morbid obesity secondary to excess caloric intake. 2. Body mass index reduced from 47 down to 31.3 3. Status post Dell-en-Y gastric bypass. 4. History of bipolar disorder. 5. Hypothyroidism. 6. Leukopenia, resolved. 7. Hypercholesterolemia 8. Dietary surveillance and management 9. Elevated parathyroid hormone PLAN: 1. Her PTH was elevated. Recommend ultrasound of the neck for parathyroid adenoma. 2. She has persistent left upper quadrant abdominal pain and may benefit from a pain referral for abdominal wall block. 3. New prescriptions for adjusted thyroid supplement written. Objective - Vital Signs Vital signs: Vital Signs Temp 98.1 F 06/16/20 15:21 Pulse 84 06/16/20 15:21 Resp 18 06/16/20 15:21 BP 145/94 06/16/20 15:21 Pulse Ox Intake & Output 06/15/20 06/16/20 06/16/20 18:59 06:59 18:59 Weight 78.925 kg
== END ==
LOC: BARWHC3 14:44
PROVIDERS: ATTEND Surgery Plastic and Reconstructive Surgery
DX: E66.01 Morbid (severe) obesity due to excess calories (principal); F31.9 Bipolar disorder, unspecified; E03.9 Hypothyroidism, unspecified; E78.00 Pure hypercholesterolemia, unspecified; E21.3 Hyperparathyroidism, unspecified; Z71.3 Dietary counseling and surveillance; Z68.31 Body mass index [BMI] 31.0-31.9, adult; Z98.84 Bariatric surgery status
CPT/HCPCS: 99211

== ENCOUNTER → 2020-07-07 | Outpatient (CLI) | payer OTHER ==
--- NOTE | 2020-07-08 13:05 | US ---
EXAMINATION TYPE: US thyroid st tissue head/neck DATE OF EXAM: 07/07/2020 COMPARISON: NONE CLINICAL HISTORY: R22.0 SWELLING/MASS/PARATHYROID GLAND. GLAND SIZE: Right Lobe: 2.6 x 0.9 x 0.8 cm Overall Parenchyma: heterogenous Left Lobe: 2.9 x 0.7 x 0.9 cm Overall Parenchyma: heterogeneous Isthmus Thickness: 0.2 cm NODULES RIGHT: # of nodules measured on right: 1 1. 0.7 X 0.5 x 0.4 cm, mid , mixed, hypoechoic nodule, which is wider than tall, with smooth margin s, with echogenic foci. Prior size: 1.1 x 0.3 x 0.6 cm LEFT: # of nodules measured on left: 0 ISTHMUS: # of nodules measured in the isthmus: 0 Bilateral neck scanned, no evidence of lymphadenopathy. *Difficult to visualize thyroid borders. 1 nodule noted mid right thyroid. calcified area inferior to right thyroid gland = 0.8 x 0.7cm IMPRESSION: Subcentimeter nodule right lobe thyroid. 2017 ACR TI-RADS LEVEL: TR-RADS 3 - Mildly Suspicious: Follow if > 1.5 cm, FNA if > 2.5 cm *Highest TI-RADS level nodule reported
== END | disposition home or self-care (01) ==
LOC: RADUSWWP 16:15
PROVIDERS: ATTEND Surgery Plastic and Reconstructive Surgery
DX: E04.1 Nontoxic single thyroid nodule (principal)
CPT/HCPCS: 76536

== ENCOUNTER → 2020-09-17 | Outpatient (CLI) | payer OTHER | END | disposition home or self-care (01) | LOC: LABWHC1 14:32 | PROVIDERS: ATTEND Surgery Plastic and Reconstructive Surgery | DX: E03.9 Hypothyroidism, unspecified (principal) | CPT/HCPCS: 36415; 84443 ==

== ENCOUNTER 2020-12-02 16:37 | Emergency (ER) | payer OTHER ==
[2020-12-02 17:21] VITALS: BP 146/91; PULSE 79; RESP 20; TEMP 98.2
[2020-12-02] MEDS ORDERED: SILVER NITRATE APPLICATOR 1 EACH STICK..EA. TOPICAL STA (18:03)
[2020-12-02] MEDS ORDERED: DIPH,PERTUS(ACELL)TETVAC-LF 0.5 ML VIAL IM ONE (18:03)
--- NOTE | 2020-12-02 18:03 | ED ---
Wound/Laceration HPI - General Chief Complaint: Wound/Laceration Stated Complaint: Rt Finger Laceration Time Seen by Provider: 12/02/20 17:59 Source: patient Mode of arrival: ambulatory Limitations: no limitations - History of Present Illness Initial Comments: Patient is a 55-year-old female presenting to emergency Department with complaints of a laceration to her right ring finger. Patient states she was using a mandolin when she actually sliced the tip of her right ring finger. Bleeding is controlled with a bandage, however it does continue to ooze when bandage is removed. She is unsure of her last tetanus vaccine. She is not on blood thinners. She has no further complaints at this time. - Related Data Home Medications Medication Instructions Recorded Confirmed Multivitamins, Thera [Multivitamin 1 each PO DAILY 04/09/14 06/16/20 (formulary)] Calcium Citrate/Vitamin D3 1 each PO BID 05/08/18 06/16/20 [Calcitrate + Vit D Caplet] lamoTRIgine [LaMICtal] 100 mg PO DAILY 05/08/18 06/16/20 Buprenorphine HCl [Belbuca] 150 mcg BUCCAL DAILY 05/19/20 06/16/20 Cyanocobalamin (Vitamin B-12) 1,000 mcg PO QMONTHLY 05/19/20 06/16/20 [Vitamin B-12] Ergocalciferol (Vitamin D2) 50,000 units PO QMONTHLY 05/19/20 06/16/20 [Drisdol (50,000 Iu)] Nystatin 100,000 Unit/gm Oint 1 applic TOPICAL DIRECTED PRN 05/19/20 06/16/20 [Mycostatin Oint] Previous Rx's Medication Instructions Recorded Levothyroxine Sodium [Levoxyl] 125 mcg PO DAILY #30 tab 05/19/20 Levothyroxine Sodium 125 mcg PO DAILY 2 Days #90 tablet 06/16/20 Levothyroxine Sodium [Synthroid] 125 mcg PO DAILY #90 tablet 11/10/20 Allergies Allergy/AdvReac Type Severity Reaction Status Date / Time amoxicillin [Amoxicillin] Allergy Rash/Hives Verified 12/02/20 17:21 hydrocodone bitartrate AdvReac Nausea & Verified 12/02/20 17:21 [From Vicodin] Vomiting Review of Systems ROS Statement: Those systems with pertinent positive or pertinent negative responses have been documented in the HPI. ROS Other: All systems not noted in ROS Statement are negative. Past Medical History Past Medical History: GERD/Reflux, Osteoarthritis (OA), Syncope, Thyroid Disorder Additional Past Medical History / Comment(s): goiter, Hashimotos, "sick sinus syndrome", Pacemaker., hx gastritis, History of Any Multi-Drug Resistant Organisms: None Reported Past Surgical History: Bariatric Surgery, Cholecystectomy, Orthopedic Surgery, Pacemaker, Tubal Ligation Additional Past Surgical History / Comment(s): bilat knee arthroscopy, alison-en-y 12-29-13, colonoscopies, Past Anesthesia/Blood Transfusion Reactions: No Reported Reaction Type of Cardiac Device: Permanent Pacemaker Device Placement Date:: 06/25/2015-enEvolvtronic Past Psychological History: Bipolar, Depression Smoking Status: Former smoker Past Alcohol Use History: None Reported Past Drug Use History: None Reported - Past Family History Mother Family Medical History: Cancer, Hyperlipidemia Additional Family Medical History / Comment(s): lung Father Family Medical History: Rheumatoid Arthritis (RA) Additional Family Medical History / Comment(s): sepsis General Exam - General Exam Comments Initial Comments: GENERAL: Patient is well-developed and well-nourished. Patient is nontoxic and in no acute distress. HEAD: Atraumatic, normocephalic. EYES: Pupils equal round and reactive to light, extraocular movements intact, sclera anicteric, conjunctiva are normal. Eyelids were unremarkable. LUNGS: Unlabored respirations. Breath sounds clear to auscultation bilaterally and equal. No wheezes rales or rhonchi. HEART: Regular rate and rhythm without murmurs, rubs or gallops. MUSCULOSKELETAL: She has full active range of motion of her right ring finger. Neurovascular intact. No clubbing or cyanosis. NEUROLOGICAL: Patient is alert and oriented x 3. SKIN: Warm, Dry, normal turgor, no rashes. Patient has a superficial 1cm, avulsion injury of the tip of the right ring finger, with only a small portion of the nail involved as well. Bleeding is controlled with a pressure and bandage however it is still oozing a bit when bandage is removed. Limitations: no limitations Course Vital Signs 12/02/20 17:19 Temperature 98.2 F Pulse Rate 79 Respiratory 20 Rate Blood Pressure 146/91 O2 Sat by Pulse 98 Oximetry Procedures - Procedures Initial comment: Patient has superficial avulsion injury of the distal and of the right ring finger, very small nail involvement, again this is superficial. Patient's wound was cauterized using silver nitrate stick on 2 separate spots. Bleeding is controlled. Patient's wound was bandaged, no active bleeding at this time. Medical Decision Making - Medical Decision Making Patient is a 55-year-old female here with a superficial avulsion injury of the tip of the right ring finger. We did update the patient's tetanus vaccine today. Patient's wound was bandaged, did cauterize 2 small areas with silver nitrate stick. Gelfoam was applied and additional bandage. She'll continue with wound care as discussed. She is in agreement with this plan of care is stable for discharge. Disposition Clinical Impression: Laceration of right ring finger with damage to nail Disposition: HOME SELF-CARE Condition: Stable Instructions (If sedation given, give patient instructions): Acute Wound Care (ED) Additional Instructions: Please return to the Emergency Department if symptoms worsen or any other concerns. Please use Gelfoam and a bandage is in the next 24-48 hours. Keep area clean and dry. Is patient prescribed a controlled substance at d/c from ED?: No Referrals: Brandon Daly DO [Primary Care Provider] - 1-2 days Time of Disposition: 18:35
[2020-12-02] MEDS ORDERED: GELATIN SPONGE,ABSORB (SMALL) 1 EACH SPONGE TOPICAL STA (18:20)
== END 2020-12-02 19:00 | disposition home or self-care (01) ==
LOC: EC 16:37
DX: S61.314A Laceration without foreign body of right ring finger with damage to nail, initial encounter (principal); Z23 Encounter for immunization; K21.9 Gastro-esophageal reflux disease without esophagitis; M19.90 Unspecified osteoarthritis, unspecified site; F31.9 Bipolar disorder, unspecified; Z79.890 Hormone replacement therapy; Z79.899 Other long term (current) drug therapy; Z87.891 Personal history of nicotine dependence
CPT/HCPCS: 11730; 90471; 90715; 99282

== ENCOUNTER → 2022-03-02 | Outpatient (CLI) | payer OTHER ==
--- NOTE | 2022-03-03 07:57 | MM ---
Reason for Exam: Screening (asymptomatic). Last mammogram was performed 2 year(s) and 1 month(s) ago. Patient History: Menarche at age 14. First Full-Term at age 16. Postmenopausal. 01/18/2015, Benign Cyst Aspiration on the right side. Maternal aunt had breast cancer, age 50. Risk Values: Loli 5 year model risk: 0.9%. NCI Lifetime model risk: 5.0%. Prior Study Comparison: 01/18/2015 Right Diagnostic Mammogram, [facility]. 01/29/2018 Bilateral Diagnostic Mammogram, [facility]. 01/29/2020 Bilateral Screening Mammogram, [facility]. Tissue Density: There are scattered fibroglandular densities. Findings: Analyzed By CAD. At the clip in the right breast redemonstrated. A few scattered tiny benign-appearing round calcifications bilaterally are redemonstrated. Left axillary pacemaker device is again seen. There is no suspicious group of microcalcifications or new suspicious mass in either breast. Overall Assessment: Benign, BI-RAD 2 Management: Screening Mammogram of both breasts in 1 year. A clinical breast exam by your physician is recommended on an annual basis and results should be correlated with mammographic findings. Electronically signed and approved by: José Ochoa M.D.
== END | disposition home or self-care (01) ==
LOC: RADMAMWWP 09:50
PROVIDERS: ATTEND Family Medicine
DX: Z12.31 Encounter for screening mammogram for malignant neoplasm of breast (principal); Z78.0 Asymptomatic menopausal state; Z80.3 Family history of malignant neoplasm of breast; Z98.890 Other specified postprocedural states
CPT/HCPCS: 77067

== ENCOUNTER → 2022-03-27 | Outpatient (CLI) | payer OTHER ==
--- NOTE | 2022-03-27 10:25 | CT ---
EXAMINATION TYPE: CT brain wo/w con CT DLP: 2295 mGycm, Automated exposure control for dose reduction was used. DATE OF EXAM: 03/27/2022 10:12 AM COMPARISON: None. CLINICAL INDICATION:Female, 57 years old with history of R41.89 OTH SYMPTOMS AND SIGNS W COGNITIVE FU NCTION, HEADACHE TECHNIQUE: Axial CT images of the brain were obtained with coronal and sagittal reformats created and reviewed. Contrast used:70 mL of Isovue 300 with IV Contrast, Oral contrast used: none. FINDINGS: Extra-axial spaces: No abnormal extra-axial fluid collections. Ventricular system: Within normal limits Cerebral parenchyma: No acute intraparenchymal hemorrhage or mass effect. The bledsoe-white junction is well differentiated. No abnormal enhancement is seen after the administration of intravenous contras t. Cerebellum: Unremarkable. Mass effect: No evidence of midline shift. Intracranial vasculature: unremarkable Soft tissues: Normal. Calvarium/osseous structures: No depressed skull fracture. Paranasal sinuses and mastoid air cells: Clear. Visualized orbits: Orbital contents are intact. IMPRESSION: No acute intracranial process and no evidence to suggest intracranial mass.
== END | disposition home or self-care (01) ==
LOC: RADCTMAIN 09:31
PROVIDERS: ATTEND Family Medicine
DX: R51.9 Headache, unspecified (principal); R41.89 Other symptoms and signs involving cognitive functions and awareness
CPT/HCPCS: 70470; Q9967

== ENCOUNTER → 2023-04-02 | Outpatient (CLI) | payer OTHER ==
--- NOTE | 2023-04-03 17:12 | MM ---
Reason for Exam: Screening (asymptomatic). Last mammogram was performed 1 year(s) and 1 month(s) ago. Patient History: Menarche at age 14. First Full-Term at age 16. Postmenopausal. 01/18/2015, Benign Cyst Aspiration on the right side. Maternal aunt had breast cancer, age 50. Risk Values: Loli 5 year model risk: 0.9%. NCI Lifetime model risk: 4.9%. Prior Study Comparison: 01/01/2015 Bilateral Diagnostic Mammogram, [facility]. 01/18/2015 Right Diagnostic Mammogram, [facility]. 01/29/2018 Bilateral Diagnostic Mammogram, [facility]. 01/29/2020 Bilateral Screening Mammogram, [facility]. 03/02/2022 Bilateral MG screening mammo w CAD, [facility]. Tissue Density: The breast tissue is heterogeneously dense. This may lower the sensitivity of mammography. Findings: Analyzed By CAD. Pattern appears symmetrical and stable. Pacemaker overlies left chest. Scattered benign punctate calcifications are present. No suspicious groups of microcalcifications, spiculated or lobular masses, architectural distortion or other secondary signs of malignancy are mammographically apparent. Overall Assessment: Benign, BI-RAD 2 Management: Screening Mammogram of both breasts in 1 year. A negative mammogram report should not preclude additional follow up of suspicious palpable abnormalities. Patient should continue monthly self breast exam. A clinical breast exam by your physician is recommended on an annual basis and results should be correlated with mammographic findings. Electronically signed and approved by: Rene Dinh D.O. Radiologis
== END | disposition home or self-care (01) ==
LOC: RADMAMWWP 11:55
PROVIDERS: ATTEND Family Medicine
DX: Z12.31 Encounter for screening mammogram for malignant neoplasm of breast (principal); Z78.0 Asymptomatic menopausal state; Z80.3 Family history of malignant neoplasm of breast
CPT/HCPCS: 77063; 77067

== ENCOUNTER 2023-06-12 08:56 | Day surgery (SDC) | payer OTHER ==
[2023-06-12] MEDS: LACTATED RINGERS 1,000 ML IV SCH (10:48)
[2023-06-12] MEDS ORDERED: PROPOFOL 10 MG/ML 20 ML VIAL IV ONE (10:58)
--- NOTE | 2023-06-12 11:14 | P.PCN ---
Date of Procedure: 06/12/23 Procedure(s) Performed: BRIEF HISTORY: Patient is a 58-year-old pleasant white female scheduled for an elective colonoscopy as a part of screening for colon cancer. PROCEDURE PERFORMED: Colonoscopy. PREOPERATIVE DIAGNOSIS: Screening for colon cancer. IV sedation per Anesthesia. PROCEDURE: After informed consent was obtained, the patient, was brought into the endoscopy unit. IV sedation was administered by Anesthesia under continuous monitoring. Digital rectal examination was normal. Initially the Olympus CF-160 flexible video colonoscope was then inserted in the rectum, gradually advanced into the cecum without any difficulty. Careful examination was performed as the scope was gradually being withdrawn. Ileocecal valve and the appendiceal orifice were visualized and appeared normal. Prep was excellent. Mucosa of the cecum, ascending colon, transverse colon, descending colon, sigmoid colon, and rectum appeared normal. Scattered sigmoid diverticulosis. Retroflexion was performed in the rectum and no lesions were seen. The patient tolerated the procedure well. IMPRESSION: Normal-appearing colon from rectum to cecum with no evidence of colorectal neoplasia Scattered sigmoid diverticulosis . RECOMMENDATIONS: Findings of this examination were discussed with the patient. Her family. She was advised to have a repeat screening colonoscopy in 10 years..
[2023-06-12 11:21] VITALS: TEMP 97.6
[2023-06-12 11:57] VITALS: BP 121/80; PULSE 62; RESP 17
== END 2023-06-12 12:07 | disposition home or self-care (01) ==
LOC: ORWHC2ENDO 08:56
PROVIDERS: ATTEND Internal Medicine Gastroenterology
DX: Z12.11 Encounter for screening for malignant neoplasm of colon (principal); K57.30 Diverticulosis of large intestine without perforation or abscess without bleeding; I48.91 Unspecified atrial fibrillation; I49.5 Sick sinus syndrome; E03.9 Hypothyroidism, unspecified; F31.9 Bipolar disorder, unspecified; Z79.01 Long term (current) use of anticoagulants; Z88.0 Allergy status to penicillin; Z88.5 Allergy status to narcotic agent; Z79.899 Other long term (current) drug therapy
CPT/HCPCS: J2704; G0121; 45378